=== PATIENT | male | born 1955 | race Caucasian/White ===

== ENCOUNTER 2019-11-24 10:16 | Emergency (ER) | payer BC ==
[~2019-11-24] VITALS: Ht 177.8 cm; Wt 72.6 kg
--- NOTE | 2019-11-24 10:30 | NUR ---
Patient to ER bed 7 to gown for evaluation. Side rails up.
[2019-11-24 10:34] VITALS: BP_SYST 120
--- NOTE | 2019-11-24 10:42 | NUR ---
pt arrives from home s/p fall from a ladder. Pt reports falling approx 8ft and onto his right ankle. Pt is unable to move the right foot at the moment.
--- NOTE | 2019-11-24 10:45 | NUR ---
ER at bedside examining patient.
--- NOTE | 2019-11-24 10:58 | NUR ---
medicated the pt w/ Motrin per MD order. Will reassess.
[2019-11-24] MEDS ORDERED: IBUPROFEN 600 MG TABLET PO ONE (11:00)
--- NOTE | 2019-11-24 11:50 | NUR ---
pt was provided w/ crutches and an orthopedic right shoe.
[2019-11-24 12:05] VITALS: BP_SYST 120
--- NOTE | 2019-11-24 12:06 | NUR ---
Patient given written and verbal discharge instructions and verbalizes understanding. ER MD discussed with patient the results and treatment provided. Patient in stable condition. ID arm band removed. Rx of ULTRAM given. Patient educated on pain management and to follow up with PMD. Pain Scale 0/10.Opportunity for questions provided and answered. Medication side effect fact sheet provided. Crutches provided
== END 2019-11-24 12:06 | disposition home or self-care (01) ==
LOC: SED 10:16
DX: S92.024A Nondisplaced fracture of anterior process of right calcaneus, initial encounter for closed fracture (principal); W13.2XXA Fall from, out of or through roof, initial encounter; Y93.89 Activity, other specified; Y92.89 Other specified places as the place of occurrence of the external cause; Y99.8 Other external cause status
CPT/HCPCS: 99283